=== PATIENT | female | born 1960 | race Caucasian/White ===

== ENCOUNTER 2020-03-11 11:01 | Emergency (ER) | payer OTHER ==
[2020-03-11] MEDS ORDERED: ONDANSETRON 4 MG (ODT) TAB ONE (11:42)
[2020-03-11] MEDS ORDERED: KETOROLAC 30 MG/ML INJ ONE (11:42)
--- NOTE | 2020-03-11 12:32 | EDPHYS ---
Physician Documentation [facility] Name: Carlota Alan Age: 59 yrs Sex: Female : 1960 Arrival Date: 03/11/2020 Time: 11:02 Bed 5 Private MD: ED Physician Bryant Mckinley HPI: 03/11 11:18 This 59 yrs old Female presents to ER via Wheelchair with complaints of Knee jr8 Injury. 11:18 The patient presents with decreased range of motion, pain, that is acute, swelling. The jr8 complaints affect the left knee. Context: The problem was sustained at home, resulted from the patient falling, a mis-step. Onset: The symptoms/episode began/occurred acutely, today. Modifying factors: The symptoms are alleviated by nothing. the symptoms are aggravated by movement, weight bearing. Associated signs and symptoms: The patient has no apparent associated signs or symptoms. Severity of symptoms: At their worst the symptoms were moderate, in the emergency department the symptoms are unchanged. The patient has not experienced similar symptoms in the past. The patient has not recently seen a physician. Patient stated that she was hanging decorations and mis-stepped off of fireplace causing her to fall. Tried to catch herself with he legs. [place] her left knee twist and pop. Historical: - Allergies: 11:05 Morphine; sv - PSHx: 11:05 Mastectomy, Right; breast augmentation; breast implant to right; sv - Immunization history:: Adult Immunizations up to date. - Social history:: Smoking status: Patient denies any tobacco usage or history of. ROS: 11:18 Eyes: Negative for injury, pain, redness, and discharge, ENT: Negative for injury, jr8 pain, and discharge, Neck: Negative for injury, pain, and swelling, Cardiovascular: Negative for chest pain, palpitations, and edema, Respiratory: Negative for shortness of breath, cough, wheezing, and pleuritic chest pain, Abdomen/GI: Negative for abdominal pain, nausea, vomiting, diarrhea, and constipation, Back: Negative for injury and pain, Skin: Negative for injury, rash, and discoloration, Neuro: Negative for headache, weakness, numbness, tingling, and seizure. 11:18 MS/extremity: Positive for decreased range of motion, pain, swelling, tenderness, of the left knee. Exam: 11:18 Constitutional: This is a well developed, well nourished patient who is awake, alert, jr8 and in no acute distress. Cardiovascular: Regular rate and rhythm with a normal S1 and S2. No gallops, murmurs, or rubs. Normal PMI, no JVD. No pulse deficits. Respiratory: Lungs have equal breath sounds bilaterally, clear to auscultation and percussion. No rales, rhonchi or wheezes noted. No increased work of breathing, no retractions or nasal flaring. Abdomen/GI: Soft, non-tender, with normal bowel sounds. No distension or tympany. No guarding or rebound. No evidence of tenderness throughout. Back: No spinal tenderness. No costovertebral tenderness. Full range of motion. Skin: Warm, dry with normal turgor. Normal color with no rashes, no lesions, and no evidence of cellulitis. Neuro: Awake and alert, GCS 15, oriented to person, place, time, and situation. Cranial nerves II-XII grossly intact. Motor strength 5/5 in all extremities. Sensory grossly intact. 11:18 Musculoskeletal/extremity: Extremities: grossly normal except: noted in the left leg: pain, swelling, tenderness, ROM: intact in all extremities, full active range of motion, full passive range of motion, limited active range of motion due to pain, in the left leg, limited passive range of motion due to pain, in the left leg, Circulation is intact in all extremities. Sensation intact. Joints: the left knee displays ligament laxity, pain at rest, painful range of motion, swelling, tenderness, positive valgus stress test of the left knee. Vital Signs: 11:05 BP 141 / 96; Pulse 70; Resp 18; Temp 97.8; Pulse Ox 100% ; sv Procedures: 12:28 Splinting: Splint applied to left leg using knee immobilizer, applied by nurse. jr8 Examined by me, post splint application: neurovascular intact, 2+ distal pulses palpable, brisk capillary refill noted, Patient tolerated well. Crutch training provided to patient and/or family. Return demonstration given. MDM: 11:03 Patient medically screened. jr8 12:28 Data reviewed: vital signs, nurses notes, radiologic studies, plain films. Data jr8 interpreted: Pulse oximetry: on room air is 100 %. Interpretation: normal. Counseling: I had a detailed discussion with the patient and/or guardian regarding: the historical points, exam findings, and any diagnostic results supporting the discharge/admit diagnosis, radiology results, the need for outpatient follow up, a orthopedic surgeon, to return to the emergency department if symptoms worsen or persist or if there are any questions or concerns that arise at home. 03/11 11:03 Order name: XRAY Knee LEFT 3 view; Complete Time: 16:52 8 03/11 12:28 Order name: Knee Immobilizer; Complete Time: 12:46 8 03/11 12:28 Order name: Crutches; Complete Time: 12:46 jr8 Administered Medications: 11:37 Drug: TORadol 30 mg Route: IM; Site: right deltoid; ph 12:07 Follow up: Response: No adverse reaction ph 11:37 Drug: Zofran (Ondansetron) 4 mg Route: PO; ph 12:07 Follow up: Response: No adverse reaction ph Disposition: 17:05 Co-signature as Attending Physician, Braynt Mckinley MD I agree with the assessment and kdr plan of care. Disposition: 03/11/20 12:32 Discharged to Home. Impression: Unspecified internal derangement of left knee. - Condition is Stable. - Discharge Instructions: Knee Immobilizer, Knee Ligament Injury, Arthroscopy. - Prescriptions for meloxicam 15 mg Oral tablet - take 1 tablet by ORAL route once daily As needed; 20 tablet. - Medication Reconciliation Form, Thank You Letter, Antibiotic Education, Prescription Opioid Use form. - Follow up: Darron Mar MD; When: 2 - 3 days; Reason: Recheck today's complaints, Continuance of care, Re-evaluation by your physician. Follow up: Simon Dean MD; When: 2 - 3 days; Reason: Recheck today's complaints, Continuance of care, Re-evaluation by your physician. - Problem is new. - Symptoms have improved. Signatures: Dispatcher [employer] Melanie Stephen, Bryant Hill RN, MD MD [facility] Vincent Johnson PA PA jr8 Nena Torrez RN RN ph Corrections: (The following items were deleted from the chart) 12:57 12:32 03/11/2020 12:32 Discharged to Home. Impression: Unspecified internal derangement ph of left knee. Condition is Stable. Forms are Medication Reconciliation Form, Thank You Letter, Antibiotic Education, Prescription Opioid Use. Follow up: Dr. Simon Dean; When: 2 - 3 days; Reason: Recheck today's complaints, Continuance of care, Re-evaluation by your physician. Problem is new. Symptoms have improved. jr8
--- NOTE | 2020-03-11 12:32 | ER ---
Nurse's Notes [facility] Name: Carlota Alan Age: 59 yrs Sex: Female : 1960 Arrival Date: 03/11/2020 Time: 11:02 Bed 5 Private MD: Diagnosis: Unspecified internal derangement of left knee Presentation: 03/11 11:04 Chief complaint: Patient states: left knee injury/pain after standing on an outdoor fireplace. [place] a "pop/crack". Coronavirus screen: Client denies travel out of the [place] in the last 14 days. At this time, the client does not indicate any symptoms associated with coronavirus-19. Ebola Screen: No symptoms or risks identified at this time. Initial Sepsis Screen: Does the patient meet any 2 criteria? No. Patient's initial sepsis screen is negative. Does the patient have a suspected source of infection? No. Patient's initial sepsis screen is negative. Risk Assessment: Do you want to hurt yourself or someone else? Patient reports no desire to harm self or others. Onset of symptoms was March 11, 2020. 11:04 Method Of Arrival: Wheelchair 11:04 Acuity: BURKE 4 sv Historical: - Allergies: 11:05 Morphine; sv - PSHx: 11:05 Mastectomy, Right; breast augmentation; breast implant to right; sv - Immunization history:: Adult Immunizations up to date. - Social history:: Smoking status: Patient denies any tobacco usage or history of. Screenin:39 Abuse screen: Denies threats or abuse. Denies injuries from another. Nutritional ph screening: No deficits noted. Tuberculosis screening: No symptoms or risk factors identified. Fall Risk None identified. Assessment: 11:38 General: Appears in no apparent distress. comfortable, well groomed, Behavior is calm, ph cooperative, appropriate for age. Pain: Complains of pain in left knee. Neuro: Level of Consciousness is awake, alert, obeys commands, Oriented to person, place, time, situation. Cardiovascular: Capillary refill < 3 seconds in bilateral fingers Patient's skin is warm and dry. Respiratory: Airway is patent Respiratory effort is even, unlabored, Respiratory pattern is regular, symmetrical. GI: Reports nausea. Derm: Skin is intact, is healthy with good turgor, Skin is pink, warm \\T\\ dry. Musculoskeletal: Circulation, motion, and sensation intact. Range of motion: intact in all extremities. 12:55 Reassessment: Patient appears in no apparent distress at this time. Patient and/or ph family updated on plan of care and expected duration. Pain level reassessed. Patient is alert, oriented x 3, equal unlabored respirations, skin warm/dry/pink. Pt d/c home. Vital Signs: 11:05 BP 141 / 96; Pulse 70; Resp 18; Temp 97.8; Pulse Ox 100% ; sv ED Course: 11:02 Patient arrived in ED. ds1 11:03 Vincent Johnson PA is PHCP. jr8 11:03 Bryant Mckinley MD is Attending Physician. jr8 11:05 Triage completed. sv 11:05 Arm band placed on. sv 11:06 Patient has correct armband on for positive identification. Bed in low position. Call sv light in reach. Side rails up X2. Pulse ox on. NIBP on. Door closed. Ice pack to injury. Head of bed elevated. 11:07 Nena Torrez, SHAVONNE is Primary Nurse. ph 11:44 XRAY Knee LEFT 3 view In Process Unspecified. EDMS 12:07 No provider procedures requiring assistance completed. ph 12:31 Darron Mar MD is Referral Physician. jr8 12:31 Referral Physician role handed off by Darron Mar MD jr8 12:31 Simon Dean MD is Referral Physician. jr8 12:46 Crutch training done. Knee immobilizer applied on left knee. 5 12:56 Patient did not have IV access during this emergency room visit. ph Administered Medications: 11:37 Drug: TORadol 30 mg Route: IM; Site: right deltoid; ph 12:07 Follow up: Response: No adverse reaction ph 11:37 Drug: Zofran (Ondansetron) 4 mg Route: PO; ph 12:07 Follow up: Response: No adverse reaction ph Outcome: 12:32 Discharge ordered by . jr8 12:56 Discharged to home with crutches, with family. ph 12:56 Condition: good 12:56 Discharge instructions given to patient, Instructed on discharge instructions, follow up and referral plans. medication usage, Demonstrated understanding of instructions, follow-up care, medications, Prescriptions given X 1. 12:57 Patient left the ED. ph Signatures: Dispatcher [employer] Melanie Stephen RN RN sv Sanford, Demi ds1 Vincent Johnson PA PA 8 Nena Torrez RN RN ph Martinez, Maria 5
--- NOTE | 2020-03-11 12:55 | RAD REPORT ---
EXAM DESCRIPTION: RAD - Knee Left 3 View - 03/11/2020 11:44 am CLINICAL HISTORY: Left knee pain FINDINGS: No fracture or dislocation is seen. Small joint effusion. Mild osteoarthritis. If the patient continues to have symptoms to suggest an occult fracture, ligamentous or meniscal inju ry then MRI would be recommended
[2020-03-11 13:01] VITALS: BP 141/96; TEMP 97.8; O2SAT 100
== END 2020-03-11 12:57 | disposition home or self-care (01) ==
LOC: ER 11:01
DX: M23.92 Unspecified internal derangement of left knee (principal); Z88.5 Allergy status to narcotic agent; Z90.11 Acquired absence of right breast and nipple; Z98.82 Breast implant status
CPT/HCPCS: 96372; 99284